=== PATIENT | male | born 1960 | race Caucasian/White ===

== ENCOUNTER 2018-06-01 11:59 | Inpatient (IN) | payer MEDICAID, OTHER ==
[~2018-06-01] VITALS: Ht 190.5 cm; Wt 85.8 kg
[2018-06-01] MEDS ORDERED: SODIUM CHLORIDE FLUSH 10ML SYR IVF ONE (12:30)
[2018-06-01] MEDS ORDERED: ONDANSETRON 2MG/ML, 2ML ONE (12:42)
[2018-06-01 12:58] LABS: INTERNATIONAL NORMALIZED RATIO 0.9 (0.93-1.1); PROTHROMBIN TIME 9.3 Seconds (9.6-11.5)
[2018-06-01 13:00] LABS: ANION GAP 13 mmol/L (5-15); CALCIUM 8.2 mg/dL (8.5-10.1); CHLORIDE 106 mmol/L (98-107); CREATININE 0.81 mg/dL (0.7-1.3)
[2018-06-01] MEDS ORDERED: SODIUM CHLORIDE 0.9% 1,000ML IVBOLUS ONE ×3 (13:00→16:30)
[2018-06-01] MEDS ORDERED: ONDANSETRON 2MG/ML, 2ML IVPush ONE (13:00)
[2018-06-01 13:04] LABS: MEAN CORPUSCULAR HEMOGLOBIN 30.2 pg (27.5-34.5); MEAN CORPUSCULAR HGB CONC 33.6 g/dL (33.2-36.2); MEAN CORPUSCULAR VOLUME 89.7 fL (81-97); MEAN PLATELET VOLUME 8.9 fL (7.4-10.4); PLATELET COUNT 181 x10^3/uL (130-400); RED BLOOD COUNT 4.19 x10^6/uL (4.38-5.82); RED CELL DISTRIBUTION WIDTH 12.8 % (9.4-14.8)
[2018-06-01 13:06] LABS: BASOPHILS # (AUTO) 0.07 x10^3/uL (0-0.1); BASOPHILS % (AUTO) 1 % (0-1); EOSINOPHILS # (AUTO) 0.08 x10^3/uL (0-0.4); EOSINOPHILS % (AUTO) 1 % (1-7); LYMPHOCYTES # (AUTO) 2.21 x10^3/uL (1-3.4); LYMPHOCYTES % (AUTO) 21 % (22-44); MD SCAN; MONOCYTES # (AUTO) 0.94 x10^3/uL (0.2-0.8); MONOCYTES % (AUTO) 9 % (2-9); NEUTROPHILS # (AUTO) 7.09 x10^3/uL (1.8-6.8); NEUTROPHILS % (AUTO) 68 % (42-75)
[2018-06-01] MEDS ORDERED: OMNIPAQUE 350 MG/ML, 100ML BOTTLE ONE (13:59)
[2018-06-01] MEDS ORDERED: SODIUM CHLORIDE 0.9% 1,000 ML IV ONE (14:49)
[2018-06-01] MEDS ORDERED: CEFOTETAN PMX 1GM/50ML 50 ML IV ONE (15:00)
[2018-06-01] MEDS ORDERED: SODIUM CHLORIDE FLUSH 10ML SYR IVF PRN (15:00)
[2018-06-01] MEDS ORDERED: CEFOTETAN PMX 1GM/50ML 50 ML ONE (15:02)
[2018-06-01] MEDS ORDERED: SODIUM CHLORIDE 0.9% 1,000 ML IV SCH (16:08)
[2018-06-01] MEDS ORDERED: DOCUSATE 100 MG CAPSULE PO PRN (16:30)
[2018-06-01] MEDS ORDERED: BISACODYL 10 MG SUPP PR PRN (16:30)
[2018-06-01] MEDS: D5%-0.9% NACL 1,000 ML IV SCH ×2 (16:30→23:46)
[2018-06-01] MEDS ORDERED: POLYETHYLENE GLYCOL 17 GM PACKET PO PRN (16:30)
[2018-06-01] MEDS ORDERED: ACETAMINOPHEN 325 MG TABLET PO PRN (16:30)
[2018-06-01] MEDS ORDERED: POTASSIUM CHLORIDE 20 MEQ TAB.ER.PRT PO ONE (16:30)
[2018-06-01] MEDS ORDERED: hydrALAzine 20 MG/ML, 1ML IVPush PRN (16:30)
[2018-06-01] MEDS ORDERED: morphine SULFATE 10 MG/ML, 1ML IVPush PRN (16:30)
[2018-06-01] MEDS: OXYcodone IR 5MG TABLET PO PRN (16:43)
[2018-06-01 16:45] VITALS: BP 155/100
[2018-06-01] MEDS: PIPERACILLIN/TAZO/PMX 3.375GM 50 ML IV SCH (17:56)
[2018-06-01] MEDS: NICOTINE 14MG/24 HR PATCH.TD24 TD SCH (17:57)
[2018-06-01 18:18] LABS: MICROSCOPIC NOT IND
[2018-06-01 18:25] LABS: CULTURE INDICATED? NO
[2018-06-01 18:40] VITALS: BP 103/63
[2018-06-01 18:41] LABS: AMPHETAMINE SCREEN, URINE Negative (Negative); BARBITURATE SCREEN, URINE Negative (Negative); BENZODIAZEPINE SCREEN, URINE Negative (Negative); CANNABINOID SCREEN, URINE Positive (Negative); COCAINE SCREEN, URINE Negative (Negative); METHADONE SCREEN, URINE Negative (Negative); OPIATE SCREEN, URINE Negative (Negative)
[2018-06-01] MEDS ORDERED: PHARMACOKINETIC CONSULTATION MC ONE (22:30)
[2018-06-01] MEDS ORDERED: PHARMACOKINETIC MONITORING MC PRN (22:30)
[2018-06-01] MEDS ORDERED: VANCOMYCIN PER PHARMACY MC PRN (22:30)
[2018-06-01] MEDS: VANCOMYCIN 1,800 MG in SODIUM CHLORIDE 0.9% 250 ML IV SCH (23:45)
[2018-06-02 01:44] VITALS: BP 128/79
[2018-06-02] MEDS: PIPERACILLIN/TAZO/PMX 3.375GM 50 ML IV SCH ×3 (02:54→17:28)
[2018-06-02 05:19] LABS: BASOPHILS # (AUTO) 0.06 x10^3/uL (0-0.1); BASOPHILS % (AUTO) 1 % (0-1); EOSINOPHILS % (AUTO) 4 % (1-7); LYMPHOCYTES # (AUTO) 2.06 x10^3/uL (1-3.4); LYMPHOCYTES % (AUTO) 26 % (22-44); MD NO; MEAN CORPUSCULAR HEMOGLOBIN 30.6 pg (27.5-34.5); MEAN CORPUSCULAR VOLUME 90.2 fL (81-97); MEAN PLATELET VOLUME 8.8 fL (7.4-10.4); MONOCYTES # (AUTO) 0.59 x10^3/uL (0.2-0.8); MONOCYTES % (AUTO) 8 % (2-9); NEUTROPHILS # (AUTO) 4.92 x10^3/uL (1.8-6.8); NEUTROPHILS % (AUTO) 62 % (42-75); PLATELET COUNT 204 x10^3/uL (130-400); RED CELL DISTRIBUTION WIDTH 12.9 % (9.4-14.8)
[2018-06-02 05:23] LABS: ALBUMIN 2.5 g/dL (3.4-5.0); ANION GAP 7 mmol/L (5-15); CALCIUM 7.8 mg/dL (8.5-10.1); CHLORIDE 113 mmol/L (98-107)
[2018-06-02 05:27] LABS: ALANINE AMINOTRANSFERASE 34 U/L (12-78); ALKALINE PHOSPHATASE 53 U/L (45-117); BILIRUBIN,TOTAL 0.6 mg/dL (0.2-1.0); CREATININE 0.91 mg/dL (0.7-1.3); TOTAL PROTEIN 5.8 g/dL (6.4-8.2)
[2018-06-02] MEDS ORDERED: POTASSIUM CHLORIDE 20 MEQ in SODIUM CHLORIDE 0.9% 250 ML IV ONE (06:00)
[2018-06-02 07:46] VITALS: BP 118/79
[2018-06-02] MEDS: SENNA/DOCUSATE TABLET PO SCH (10:09)
[2018-06-02] MEDS: D5%-0.9% NACL 1,000 ML IV SCH (10:09)
[2018-06-02] MEDS: VANCOMYCIN 1,800 MG in SODIUM CHLORIDE 0.9% 250 ML IV SCH ×2 (11:52→23:10)
[2018-06-02] MEDS: OXYcodone IR 5MG TABLET PO PRN ×2 (15:04→21:52)
[2018-06-02] MEDS: SODIUM CHLORIDE 0.9% 1,000 ML IV SCH ×2 (15:04→23:10)
[2018-06-02 15:59] VITALS: BP 112/77
[2018-06-02] MEDS: NICOTINE 14MG/24 HR PATCH.TD24 TD SCH (17:29)
[2018-06-02 20:21] VITALS: BP 141/91
[2018-06-03] MEDS: PIPERACILLIN/TAZO/PMX 3.375GM 50 ML IV SCH ×3 (01:57→20:08)
[2018-06-03 02:03] VITALS: BP 148/74
[2018-06-03] MEDS: OXYcodone IR 5MG TABLET PO PRN ×4 (04:54→20:35)
[2018-06-03 05:43] LABS: BASOPHILS # (AUTO) 0.04 x10^3/uL (0-0.1); BASOPHILS % (AUTO) 1 % (0-1); EOSINOPHILS # (AUTO) 0.38 x10^3/uL (0-0.4); EOSINOPHILS % (AUTO) 6 % (1-7); LYMPHOCYTES # (AUTO) 1.98 x10^3/uL (1-3.4); LYMPHOCYTES % (AUTO) 32 % (22-44); MD NO; MEAN CORPUSCULAR HEMOGLOBIN 31.1 pg (27.5-34.5); MEAN CORPUSCULAR HGB CONC 33.7 g/dL (33.2-36.2); MEAN CORPUSCULAR VOLUME 92.2 fL (81-97); MEAN PLATELET VOLUME 8.5 fL (7.4-10.4); MONOCYTES # (AUTO) 0.57 x10^3/uL (0.2-0.8); MONOCYTES % (AUTO) 9 % (2-9); NEUTROPHILS # (AUTO) 3.15 x10^3/uL (1.8-6.8); NEUTROPHILS % (AUTO) 52 % (42-75); PLATELET COUNT 212 x10^3/uL (130-400); RED BLOOD COUNT 3.83 x10^6/uL (4.38-5.82); RED CELL DISTRIBUTION WIDTH 13.3 % (9.4-14.8)
[2018-06-03 05:44] LABS: ALBUMIN 2.4 g/dL (3.4-5.0); ANION GAP 5 mmol/L (5-15); CHLORIDE 110 mmol/L (98-107); CREATININE 0.86 mg/dL (0.7-1.3)
[2018-06-03 07:21] VITALS: BP 126/84
[2018-06-03] MEDS: SENNA/DOCUSATE TABLET PO SCH (09:00)
[2018-06-03] MEDS: SODIUM CHLORIDE 0.9% 1,000 ML IV SCH ×2 (11:30→20:08)
[2018-06-03 12:53] VITALS: BP 146/94
[2018-06-03] MEDS: VANCOMYCIN 1,800 MG in SODIUM CHLORIDE 0.9% 250 ML IV SCH (13:41)
[2018-06-03] MEDS: NICOTINE 14MG/24 HR PATCH.TD24 TD SCH (18:41)
[2018-06-03 19:22] VITALS: BP 140/94
[2018-06-03 19:24] LABS: ALBUMIN 2.8 g/dL (3.4-5.0); ANION GAP 8 mmol/L (5-15); CALCIUM 8.2 mg/dL (8.5-10.1); CHLORIDE 107 mmol/L (98-107)
[2018-06-03 19:27] LABS: CREATININE 0.94 mg/dL (0.7-1.3)
[2018-06-03 21:23] LABS: CLOSTRIDIUM DIFFICILE ANTIGEN NEGATIVE; CLOSTRIDIUM DIFFICILE TOXIN NEGATIVE (Negative)
[2018-06-04] MEDS: VANCOMYCIN 1,800 MG in SODIUM CHLORIDE 0.9% 250 ML IV SCH ×2 (01:56→13:45)
[2018-06-04 03:30] VITALS: BP 139/89
[2018-06-04] MEDS: PIPERACILLIN/TAZO/PMX 3.375GM 50 ML IV SCH ×2 (03:30→11:17)
[2018-06-04] MEDS: SODIUM CHLORIDE 0.9% 1,000 ML IV SCH (06:30)
[2018-06-04 07:45] VITALS: BP 139/78
[2018-06-04] MEDS: SENNA/DOCUSATE TABLET PO SCH (07:51)
[2018-06-04] MEDS: OXYcodone IR 5MG TABLET PO PRN ×3 (07:52→21:09)
[2018-06-04] MEDS: HEPARIN 5,000 UNITS/ML, 1ML SQ SCH ×2 (13:00→21:00)
[2018-06-04] MEDS ORDERED: BENZTROPINE 1 MG TABLET PO PRN (14:30)
[2018-06-04] MEDS ORDERED: BENZTROPINE 1 MG/ML, 2 ML IM PRN (14:30)
[2018-06-04] MEDS: ARIPIPRAZOLE 10 MG TABLET PO SCH (15:07)
[2018-06-04] MEDS: NICOTINE 14MG/24 HR PATCH.TD24 TD SCH (17:37)
[2018-06-04] MEDS ORDERED: RISPERIDONE 1 MG TABLET PO SCH (18:00)
[2018-06-04 19:10] VITALS: BP 124/87
[2018-06-04] MEDS: AMOXICILLIN/CLAV 875-125MG TABLET PO SCH (21:09)
[2018-06-04] MEDS: DOXYCYCLINE 100MG TABLET PO SCH (21:09)
[2018-06-05 02:58] VITALS: BP 127/83
[2018-06-05] MEDS: HEPARIN 5,000 UNITS/ML, 1ML SQ SCH (04:05)
[2018-06-05] MEDS: OXYcodone IR 5MG TABLET PO PRN ×3 (04:35→21:04)
[2018-06-05 05:01] LABS: CHLORIDE 105 mmol/L (98-107)
[2018-06-05 05:07] LABS: ANION GAP 6 mmol/L (5-15); CALCIUM 8.8 mg/dL (8.5-10.1); CREATININE 0.93 mg/dL (0.7-1.3)
[2018-06-05 07:42] VITALS: BP 104/70
[2018-06-05] MEDS: SENNA/DOCUSATE TABLET PO SCH (10:22)
[2018-06-05] MEDS: AMOXICILLIN/CLAV 875-125MG TABLET PO SCH ×2 (10:23→20:15)
[2018-06-05] MEDS: ARIPIPRAZOLE 10 MG TABLET PO SCH (10:23)
[2018-06-05] MEDS: DOXYCYCLINE 100MG TABLET PO SCH ×2 (10:23→20:15)
[2018-06-05 13:12] VITALS: BP 142/94
[2018-06-05] MEDS: NICOTINE 14MG/24 HR PATCH.TD24 TD SCH (18:00)
[2018-06-05 19:45] VITALS: BP 130/79
[2018-06-06 02:22] VITALS: BP 109/72
[2018-06-06 07:51] VITALS: BP 121/83
[2018-06-06] MEDS: SENNA/DOCUSATE TABLET PO SCH (09:00)
[2018-06-06] MEDS: AMOXICILLIN/CLAV 875-125MG TABLET PO SCH ×2 (09:57→22:14)
[2018-06-06] MEDS: DOXYCYCLINE 100MG TABLET PO SCH ×2 (09:57→22:14)
[2018-06-06] MEDS: ARIPIPRAZOLE 10 MG TABLET PO SCH (09:58)
[2018-06-06] MEDS: OXYcodone IR 5MG TABLET PO PRN ×3 (09:58→22:14)
[2018-06-06 12:53] VITALS: BP 134/79
[2018-06-06] MEDS: NICOTINE 14MG/24 HR PATCH.TD24 TD SCH (16:18)
[2018-06-06 20:13] VITALS: BP 98/63
[2018-06-07 04:20] VITALS: BP 118/81
[2018-06-07 05:17] LABS: BASOPHILS # (AUTO) 0.03 x10^3/uL (0-0.1); BASOPHILS % (AUTO) 0 % (0-1); EOSINOPHILS # (AUTO) 0.32 x10^3/uL (0-0.4); EOSINOPHILS % (AUTO) 4 % (1-7); LYMPHOCYTES # (AUTO) 2.73 x10^3/uL (1-3.4); LYMPHOCYTES % (AUTO) 35 % (22-44); MD NO; MEAN CORPUSCULAR HEMOGLOBIN 30.5 pg (27.5-34.5); MEAN CORPUSCULAR HGB CONC 33.9 g/dL (33.2-36.2); MEAN CORPUSCULAR VOLUME 90.1 fL (81-97); MEAN PLATELET VOLUME 8.6 fL (7.4-10.4); MONOCYTES # (AUTO) 0.81 x10^3/uL (0.2-0.8); MONOCYTES % (AUTO) 10 % (2-9); NEUTROPHILS # (AUTO) 3.94 x10^3/uL (1.8-6.8); NEUTROPHILS % (AUTO) 50 % (42-75); PLATELET COUNT 255 x10^3/uL (130-400); RED CELL DISTRIBUTION WIDTH 12.8 % (9.4-14.8)
[2018-06-07 05:20] LABS: ALBUMIN 2.8 g/dL (3.4-5.0); CALCIUM 8.3 mg/dL (8.5-10.1); CHLORIDE 107 mmol/L (98-107)
[2018-06-07 05:22] LABS: ANION GAP 6 mmol/L (5-15)
[2018-06-07 08:29] VITALS: BP 115/73
[2018-06-07] MEDS: SENNA/DOCUSATE TABLET PO SCH (09:00)
[2018-06-07] MEDS: DOXYCYCLINE 100MG TABLET PO SCH ×2 (09:49→21:23)
[2018-06-07] MEDS: AMOXICILLIN/CLAV 875-125MG TABLET PO SCH ×2 (09:49→21:23)
[2018-06-07] MEDS: OXYcodone IR 5MG TABLET PO PRN ×2 (09:49→19:33)
[2018-06-07] MEDS: ARIPIPRAZOLE 10 MG TABLET PO SCH (09:51)
[2018-06-07 14:37] VITALS: BP 95/64
[2018-06-07] MEDS: NICOTINE 14MG/24 HR PATCH.TD24 TD SCH (17:41)
[2018-06-07 19:09] VITALS: BP 124/83
[2018-06-08 03:25] VITALS: BP 125/75
[2018-06-08 05:55] LABS: BASOPHILS # (AUTO) 0.06 x10^3/uL (0-0.1); BASOPHILS % (AUTO) 1 % (0-1); EOSINOPHILS # (AUTO) 0.22 x10^3/uL (0-0.4); EOSINOPHILS % (AUTO) 3 % (1-7); LYMPHOCYTES # (AUTO) 2.71 x10^3/uL (1-3.4); LYMPHOCYTES % (AUTO) 33 % (22-44); MD NO; MEAN CORPUSCULAR HEMOGLOBIN 30.7 pg (27.5-34.5); MEAN CORPUSCULAR HGB CONC 33.9 g/dL (33.2-36.2); MEAN CORPUSCULAR VOLUME 90.5 fL (81-97); MEAN PLATELET VOLUME 9.1 fL (7.4-10.4); MONOCYTES # (AUTO) 0.71 x10^3/uL (0.2-0.8); MONOCYTES % (AUTO) 9 % (2-9); NEUTROPHILS # (AUTO) 4.48 x10^3/uL (1.8-6.8); NEUTROPHILS % (AUTO) 55 % (42-75); PLATELET COUNT 281 x10^3/uL (130-400); RED BLOOD COUNT 4.44 x10^6/uL (4.38-5.82); RED CELL DISTRIBUTION WIDTH 13.3 % (9.4-14.8)
[2018-06-08 06:05] LABS: ALBUMIN 2.9 g/dL (3.4-5.0); ANION GAP 6 mmol/L (5-15); CALCIUM 8.5 mg/dL (8.5-10.1); CHLORIDE 108 mmol/L (98-107)
[2018-06-08 06:10] LABS: ALANINE AMINOTRANSFERASE 40 U/L (12-78); ALKALINE PHOSPHATASE 77 U/L (45-117); BILIRUBIN,TOTAL 0.5 mg/dL (0.2-1.0); CREATININE 0.86 mg/dL (0.7-1.3); TOTAL PROTEIN 6.7 g/dL (6.4-8.2)
[2018-06-08 07:05] VITALS: BP 130/80
[2018-06-08] MEDS: AMOXICILLIN/CLAV 875-125MG TABLET PO SCH ×2 (08:14→21:32)
[2018-06-08] MEDS: DOXYCYCLINE 100MG TABLET PO SCH ×2 (08:14→21:32)
[2018-06-08] MEDS: ARIPIPRAZOLE 10 MG TABLET PO SCH (08:14)
[2018-06-08] MEDS: OXYcodone IR 5MG TABLET PO PRN ×2 (08:14→17:09)
[2018-06-08] MEDS: SENNA/DOCUSATE TABLET PO SCH (08:16)
[2018-06-08] MEDS: NICOTINE 14MG/24 HR PATCH.TD24 TD SCH (09:00)
[2018-06-08 13:35] VITALS: BP 104/71
[2018-06-08 19:07] VITALS: BP 105/71
[2018-06-09 01:12] VITALS: BP 107/71
[2018-06-09] MEDS: OXYcodone IR 5MG TABLET PO PRN ×2 (06:12→20:33)
[2018-06-09 06:55] VITALS: BP 115/74
[2018-06-09] MEDS: AMOXICILLIN/CLAV 875-125MG TABLET PO SCH ×2 (08:54→20:33)
[2018-06-09] MEDS: DOXYCYCLINE 100MG TABLET PO SCH ×2 (08:54→20:33)
[2018-06-09] MEDS: NICOTINE 14MG/24 HR PATCH.TD24 TD SCH (08:54)
[2018-06-09] MEDS: ARIPIPRAZOLE 10 MG TABLET PO SCH (08:55)
[2018-06-09] MEDS: SENNA/DOCUSATE TABLET PO SCH (08:58)
[2018-06-09 12:10] VITALS: BP 123/81
[2018-06-09 18:33] VITALS: BP 126/86
[2018-06-10 01:07] VITALS: BP 106/68
[2018-06-10 06:38] VITALS: BP 115/73
[2018-06-10] MEDS: ARIPIPRAZOLE 10 MG TABLET PO SCH (09:00)
[2018-06-10] MEDS: SENNA/DOCUSATE TABLET PO SCH (09:00)
[2018-06-10] MEDS: DOXYCYCLINE 100MG TABLET PO SCH ×2 (09:00→21:00)
[2018-06-10] MEDS: AMOXICILLIN/CLAV 875-125MG TABLET PO SCH ×2 (09:29→21:31)
[2018-06-10] MEDS: NICOTINE 14MG/24 HR PATCH.TD24 TD SCH (09:31)
[2018-06-10 12:23] VITALS: BP 123/85
[2018-06-10 19:12] VITALS: BP 122/82
[2018-06-11 02:17] VITALS: BP 122/81
[2018-06-11 07:01] VITALS: BP 146/90
[2018-06-11] MEDS: SENNA/DOCUSATE TABLET PO SCH (09:00)
[2018-06-11] MEDS: ARIPIPRAZOLE 10 MG TABLET PO SCH (09:00)
[2018-06-11] MEDS: DOXYCYCLINE 100MG TABLET PO SCH ×2 (09:00→21:25)
[2018-06-11] MEDS: AMOXICILLIN/CLAV 875-125MG TABLET PO SCH ×2 (09:17→21:25)
[2018-06-11] MEDS: NICOTINE 14MG/24 HR PATCH.TD24 TD SCH (09:18)
[2018-06-11 13:45] VITALS: BP 110/69
[2018-06-11 19:53] VITALS: BP 137/91
[2018-06-12 03:59] VITALS: BP 125/82
[2018-06-12 07:20] VITALS: BP 109/79
[2018-06-12] MEDS: SENNA/DOCUSATE TABLET PO SCH (09:00)
[2018-06-12] MEDS: ARIPIPRAZOLE 10 MG TABLET PO SCH (11:24)
[2018-06-12] MEDS: DOXYCYCLINE 100MG TABLET PO SCH (11:24)
[2018-06-12] MEDS: NICOTINE 14MG/24 HR PATCH.TD24 TD SCH (11:24)
[2018-06-12] MEDS: AMOXICILLIN/CLAV 875-125MG TABLET PO SCH (11:24)
[2018-06-12] MEDS ORDERED: ARIPIPRAZOLE 400 MG INJ NC IM ONE (12:00)
[2018-06-12] MEDS ORDERED: ACET325T14 PO (12:03)
[2018-06-12] MEDS ORDERED: DOXY100T PO (12:03)
[2018-06-12] MEDS ORDERED: AMOX1TAB12 PO (12:03)
[2018-06-12 13:01] VITALS: BP 110/69
== END 2018-06-12 13:45 | disposition home or self-care (01) | DRG 856 ==
LOC: ED 14:41 → EDIP 15:01 → 3NE 15:43
PROVIDERS: ADMIT Hospitalist; ATTEND Hospitalist
PROC: 0WBF0ZZ Excision of Abdominal Wall, Open Approach (ICD-10-PCS; principal; 2018-06-01)
DX: T81.4XXA Infection following a procedure, initial encounter (principal); A41.9 Sepsis, unspecified organism; R65.20 Severe sepsis without septic shock; L03.311 Cellulitis of abdominal wall; E87.2 Acidosis; R45.851 Suicidal ideations; K56.7 Ileus, unspecified; D64.9 Anemia, unspecified; E87.6 Hypokalemia; E88.09 Other disorders of plasma-protein metabolism, not elsewhere classified; F29 Unspecified psychosis not due to a substance or known physiological condition; F31.9 Bipolar disorder, unspecified; J45.909 Unspecified asthma, uncomplicated; K66.8 Other specified disorders of peritoneum; F12.90 Cannabis use, unspecified, uncomplicated; F17.210 Nicotine dependence, cigarettes, uncomplicated; Y83.2 Surgical operation with anastomosis, bypass or graft as the cause of abnormal reaction of the patient, or of later complication, without mention of misadventure at the time of the procedure; Z59.9 Problem related to housing and economic circumstances, unspecified; Z86.14 Personal history of Methicillin resistant Staphylococcus aureus infection; Z80.1 Family history of malignant neoplasm of trachea, bronchus and lung
CPT/HCPCS: 36415; 84145; 99285; J7042; 71045; 74177; 80048; 80053; 80202; 80307; 81003; 82040; 82962; 83605; 83735; 84443; 85025; 85610; 85730; 87040; 87070; 87205; 87324; 93005; 96374; 96375; J2405; J2543; J3370; J3480; Q9967; J7030; J7050; S0074

== ENCOUNTER 2019-01-11 12:12 | Emergency (ER) | payer MEDICAID, OTHER ==
[~2019-01-11] VITALS: Ht 190.5 cm; Wt 100.0 kg
[~2019-01-11 12:12] MED LIST: ACET325T14 PO; AMOX1TAB12 PO; DOXY100T PO
--- NOTE | 2019-01-11 12:29 | NUR ---
pt biba for syncope today, denies fall or head injury, states "I caught myself before falling". pt notes rt ear pain, cough and dizziness x 3 days. denies cp/pressure. report taken from [facility]. 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 ekg taken on arrival by this rn, reviewed by [facility]. all monitors in place. awaiting orders.
[2019-01-11] MEDS ORDERED: SODIUM CHLORIDE 0.9% 1,000 ML IV ONE (12:32)
[2019-01-11 12:57] LABS: BASOPHILS # (AUTO) 0.01 x10^3/uL (0-0.1); BASOPHILS % (AUTO) 0 % (0-1); EOSINOPHILS % (AUTO) 0 % (1-7); LYMPHOCYTES # (AUTO) 0.58 x10^3/uL (1-3.4); LYMPHOCYTES % (AUTO) 10 % (22-44); MD NO; MEAN CORPUSCULAR HEMOGLOBIN 31.2 pg (27.5-34.5); MEAN CORPUSCULAR HGB CONC 34.3 g/dL (33.2-36.2); MEAN CORPUSCULAR VOLUME 90.8 fL (81-97); MEAN PLATELET VOLUME 9.5 fL (7.4-10.4); MONOCYTES # (AUTO) 0.32 x10^3/uL (0.2-0.8); MONOCYTES % (AUTO) 5 % (2-9); NEUTROPHILS # (AUTO) 5.06 x10^3/uL (1.8-6.8); NEUTROPHILS % (AUTO) 85 % (42-75); PLATELET COUNT 132 x10^3/uL (130-400); RED CELL DISTRIBUTION WIDTH 13.5 % (9.4-14.8)
[2019-01-11] MEDS ORDERED: SODIUM CHLORIDE FLUSH 10ML SYR IVF ONE (13:00)
[2019-01-11] MEDS ORDERED: SODIUM CHLORIDE 0.9% 1,000ML IVBOLUS ONE (13:00)
[2019-01-11] MEDS ORDERED: KETOROLAC 30 MG/1 ML IVPush ONE (13:00)
[2019-01-11 13:10] LABS: ALANINE AMINOTRANSFERASE 61 U/L (12-78); ALBUMIN 3.2 g/dL (3.4-5.0); ANION GAP 8 mmol/L (5-15); CALCIUM 8.1 mg/dL (8.5-10.1); CHLORIDE 105 mmol/L (98-107); CREATININE 1.14 mg/dL (0.7-1.3)
[2019-01-11 13:12] LABS: ALKALINE PHOSPHATASE 113 U/L (45-117); BILIRUBIN,TOTAL 0.7 mg/dL (0.2-1.0); TOTAL PROTEIN 7.3 g/dL (6.4-8.2)
[2019-01-11] MEDS ORDERED: KETOROLAC 30 MG/1 ML ONE (13:18)
[2019-01-11 13:28] LABS: RAPID INFLUENZA A Negative (Negative); RAPID INFLUENZA B Negative (Negative)
--- NOTE | 2019-01-11 13:30 | NUR ---
pt medicated per emar, tolerated well. pt now sleeping on gurney, resps even and unlabored.
--- NOTE | 2019-01-11 14:17 | NUR ---
pt sleeping on gurney, resps even and unlabored. 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 all results back, chart up for recheck. awaiting MD and dispo.
[2019-01-11 15:19] VITALS: BP 123/85
--- NOTE | 2019-01-11 15:20 | NUR ---
Pt given dc instructions and script, educated regarding rx for cortosporin ear drops. pt a&o, reps even and unlabored, reports symptoms improved s/p meds. piv dc'd with tip intact. pt amb to dc desk, gait steady. nadn at dc.
== END 2019-01-11 15:20 | disposition home or self-care (01) ==
LOC: ED 14:03
DX: H60.501 Unspecified acute noninfective otitis externa, right ear (principal); B34.9 Viral infection, unspecified; R19.7 Diarrhea, unspecified; R42 Dizziness and giddiness
CPT/HCPCS: 36415; 71045; 80053; 85025; 87400; 93005; 96361; 96374; 99284; J1885; J7030